=== PATIENT | male | born 1945 | race Caucasian/White ===

== ENCOUNTER 2019-05-07 07:27 | Day surgery (SDC) | payer BC, MEDICARE ==
[2019-04-29 16:31] LABS: BASOPHILS # (AUTO) 0.1 X10'3 (0-0.2); EOSINOPHILS # (AUTO) 0.1 X10'3 (0-0.9); EOSINOPHILS % (AUTO) 1.6 % (0-6); LYMPHOCYTES # (AUTO) 1.7 X10'3 (1.1-4.8); LYMPHOCYTES % (AUTO) 24.9 % (21-51); MEAN CORPUSCULAR HEMOGLOBIN 29.7 PG (27.0-31.0); MEAN CORPUSCULAR HGB CONC 32.7 g/dL (33.0-36.5); MEAN CORPUSCULAR VOLUME 90.7 FL (78-98); MONOCYTES # (AUTO) 0.6 X10'3 (0-0.9); MONOCYTES % (AUTO) 8.7 % (2-12); NEUTROPHILS # (AUTO) 4.3 X10'3 (1.8-7.7); NEUTROPHILS % (AUTO) 63.8 % (42-75); PRE OP HEMOGLOBIN 13.1 g/dL (14.0-17.9); PRE OP PLATELET COUNT 223 X10'3 (140-440); RED CELL DISTRIBUTION WIDTH 14.5 % (11.5-14.5)
[2019-04-29 16:43] LABS: PRE OP PROTIME 10.4 SECONDS (9.0-12.0)
[2019-04-29 16:45] LABS: ALBUMIN 3.9 G/DL (3.4-5.0); ALKALINE PHOSPHATASE 74 IU/L (46-116); BLOOD UREA NITROGEN 16 MG/DL (7-18); BUN/CREATININE RATIO 17.2 (5.4-32.0); CALCIUM 9.1 MG/DL (8.5-10.1); CHLORIDE 106 MMOL/L (99-107); CREATININE 0.93 MG/DL (0.60-1.10); PRE OP ALT 23 U/L (30-65); PRE OP ANION GAP 10 (8-16); PRE OP AST 17 U/L (10-37); PRE OP BILIRUB, TOTAL 0.4 MG/DL (0.0-1.0); PRE OP GLUCOSE 134 MG/DL (70-104); PRE OP POTASSIUM 4.3 MMOL/L (3.4-5.1); PRE OP SODIUM 143 MMOL/L (135-145); TOTAL CARBON DIOXIDE 26.8 MMOL/L (24-32); TOTAL PROTEIN 7.7 G/DL (6.4-8.2); eGFR 80 ML/MIN
[~2019-05-07] VITALS: Ht 182.9 cm; Wt 113.4 kg
[~2019-05-07 07:27] MED LIST: APIX5TAB3 PO; ASPI-529 PO; ATOR20TA PO; FLO0.4C PO; LOSA25TA41 PO; METF500T20 PO; SITA100T11 PO; cefazolin/dext.iso 2gm/50ml 50 ML IV ONE; famotidine 20mg tablet PO ONE; ringers solution, lacted 1,000 ML IV SCH; vancomycin inj 1,500 MG in normal saline 300ml IV soln IV ONE
[2019-05-07 07:40] VITALS: BP 161/92
[2019-05-07] MEDS ORDERED: morphine /PF 1mg/ml 10ml inj. ONE (09:19)
[2019-05-07] MEDS ORDERED: BUPIVAcaine/PF 2.5mg/ml (0.25%) 10ml vial ONE (09:19)
[2019-05-07] MEDS ORDERED: cloNIDine hcl/PF 100mcg/ml inj ONE (11:07)
[2019-05-07] MEDS ORDERED: ROPIVAcaine 0.5% (5mg/ml) 30ml vial ONE (11:07)
[2019-05-07] MEDS ORDERED: midazolam 2 mg/2 ml injection ONE ×2 (11:09)
[2019-05-07] MEDS ORDERED: fentaNYL/PF 50MCG/1 ML 2ML syringe ONE (11:09)
[2019-05-07] MEDS ORDERED: sevoflurane 250ml liquid IH ONE (11:12)
[2019-05-07] MEDS ORDERED: propofol inj 20 ML IV ONE (12:09)
[2019-05-07] MEDS ORDERED: ringers solution, lacted 1,000 ML IV SCH (12:17)
[2019-05-07] MEDS ORDERED: meperidine/PF 25mg/ml syringe IV PRN ×3 (12:20)
[2019-05-07] MEDS ORDERED: morphine 4 MG/ML inj SYRINge IV PRN ×2 (12:20)
[2019-05-07] MEDS ORDERED: proCHLORperazine 10 MG/2 ml inj IV PRN (12:20)
[2019-05-07] MEDS ORDERED: ondansetron/PF 4mg/2ml inj IV PRN (12:20)
[2019-05-07 12:59] VITALS: BP 150/89
--- NOTE | 2019-05-07 12:59 | NUR ---
Received from OR via [facility] , accompanied by Anesthesiologist ARA and report given by Anesthesiolgist. PATIENT WITH 20G PIV IN LEFT UE RUNNING LR AT 100. 10L MASK ON WITH 100% SATRUATIONS. RIGHT ANKLE DEBRIDEMENT MEDIAL LATERAL GUTTER RIGHT ANKLE. + CAP REFILL AND SENSATION. VSS Addendum: 05/07/19 at 1309 by Reymundo Morales RN, RN Amended: Links added.
[2019-05-07 13:09] VITALS: BP 148/88
[2019-05-07 13:19] VITALS: BP 159/91
[2019-05-07 13:29] VITALS: BP 149/96
--- NOTE | 2019-05-07 13:39 | NUR ---
ALL DC CRITERIA HAS BEEN MET FOR DISCHARGE HOME. ALL QUESTIONS ANSWERED, IV OUT WITHOUT COMPLICATIONS. DENIES PAIN . COVERED ALL INSTRUCTIONS WITH AND PATIENT. OUT VIA WHEELCHAIR TO PERSONAL VEHICLE WHERE SPOUSE DROVE PATIENT HOME. DRESSING TO RIGHT FOOT WAS STILL CDI. Addendum: 05/07/19 at 1449 by Reymundo Morales RN, RN Amended: Links added.
--- NOTE | 2019-05-07 14:49 | NUR ---
120 BG IN RR Addendum: 05/07/19 at 1450 by Reymundo Morales RN RN Amended: Links added.
== END 2019-05-07 13:39 | disposition home or self-care (01) ==
LOC: PAS 07:27
PROVIDERS: ATTEND Orthopaedic Surgery
DX: M19.071 Primary osteoarthritis, right ankle and foot (principal); M19.072 Primary osteoarthritis, left ankle and foot; I10 Essential (primary) hypertension; I08.3 Combined rheumatic disorders of mitral, aortic and tricuspid valves; E11.59 Type 2 diabetes mellitus with other circulatory complications; I48.91 Unspecified atrial fibrillation; E78.5 Hyperlipidemia, unspecified; G89.4 Chronic pain syndrome; E66.01 Morbid (severe) obesity due to excess calories; Z68.33 Body mass index [BMI] 33.0-33.9, adult; Z96.661 Presence of right artificial ankle joint; Z79.899 Other long term (current) drug therapy; Z79.84 Long term (current) use of oral hypoglycemic drugs; Z79.82 Long term (current) use of aspirin; Z87.891 Personal history of nicotine dependence; Z88.8 Allergy status to other drugs, medicaments and biological substances; Z86.718 Personal history of other venous thrombosis and embolism; G89.18 Other acute postprocedural pain
CPT/HCPCS: 29898; 36415; 64450; 71046; 80053; 82948; 85025; 85610; 85730; 93306; J0735; J2250; J2270; J2704; J3010; J3370; J3490; A4215; A4618; A6250; A6449; A7000; J2795; J7120